=== PATIENT | female | born 2000 | race Caucasian/White ===

== ENCOUNTER 2020-10-13 19:26 | Emergency (ER) | payer OTHER, SELFPAY ==
[2020-10-13 19:27] VITALS: BP 149/90; PULSE 60; RESP 18; TEMP 36.5; O2SAT 99; BMI 26.3
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
[2020-10-13] MEDS: Ondansetron ODT 4 MG Tablet PO (22:07)
[2020-10-13 22:09] VITALS: BP 133/78; RESP 18
== END 2020-10-13 22:15 | disposition home or self-care (01) ==
PROVIDERS: Emergency Provider Student in an Organized Health Care Education/Training Program; PCP Family Medicine
DX: S06.0X0A Concussion without loss of consciousness, initial encounter (principal); V47.5XXA Car driver injured in collision with fixed or stationary object in traffic accident, initial encounter; Y93.I9 Activity, other involving external motion; Y92.410 Unspecified street and highway as the place of occurrence of the external cause; Y99.8 Other external cause status
CPT/HCPCS: 70450; 99283

== ENCOUNTER 2022-05-30 04:10 | Emergency (ER) | payer OTHER, SELFPAY ==
[2022-05-30 04:11] VITALS: BP 126/70; PULSE 94; RESP 16; TEMP 35.9; O2SAT 97; BMI 28.3
--- NOTE | 2022-05-30 04:20 | ED.VIS.LOWEX ---
HPI History of Present Illness Chief Complaint: Lower Extremity Injury Narrative Narrative: 21-year-old female, denies significant past medical history, presents with injury to her right ankle that she sustained last evening. She states she was walking downstairs in high heels, and on the last step, rolled her ankle. She did not fall. She did not strike her head or lose consciousness. She now has pain and swelling mainly about the right lateral ankle. Pain is worse with weightbearing and walking. She took ibuprofen approximately 2 hours prior to arrival. She does have swelling laterally and slight ecchymosis that she noticed. She denies any other injury, states that it is mainly her ankle that is bothering her. PFSH [facility] Home Medications NK 05/30/22 [History Last Taken Unknown] Allergy/AdvReac Type Severity Reaction Status Date / Time No Known Allergies Allergy Verified 10/13/20 19:29 Social History Smoking Status: Never smoker ROS ROS ED ROS Narrative Constitutional: No fever, no chills. HEENT: No sore throat. No neck pain. No loss of vision. No rhinorrhea. Cardiovascular: No chest pain. No palpitations. No pedal edema. Respiratory: No cough, no shortness of breath. Abdominal: No abdominal pain. No nausea. No vomiting. Genitourinary: No dysuria. No hematuria. Musculoskeletal: No myalgias. Right ankle pain and swelling, with mild discoloration. Neurologic: No headaches. No dizziness. No lightheadedness. Skin: No rash. No change in color. Psychiatric: No depression. No anxiety. EXAM Physical Exam Narrative Exam Narrative: Afebrile. Vital signs noted. HEENT: Normocephalic. Atraumatic. PERRL, EOMI. Neck soft and supple. No point tenderness or step off. Cardiovascular: Regular rate and rhythm. No murmurs, rubs, or gallops appreciated. Respiratory: No tachypnea. Lungs clear to auscultation bilaterally. Gastrointestinal: Abdomen soft, nontender, with normoactive bowel sounds. No rebound or guarding. Neurological: Awake. Alert. Nonfocal, nonlateralizing. Skin: No rash. Normal color. No pallor. Musculoskeletal: No pedal edema. Positive swelling and tenderness right lateral malleolus and talofibular ligament area. Palpable dorsalis pedis pulse, right. No palpable Achilles tendon deficit. Flexion and dorsiflexion of right foot intact. No proximal fibular head tenderness. No pain at the base of the fifth metatarsal. Flexion and extension mechanism at knee intact. Const Vital Signs: 05/30/22 04:11 05/30/22 04:11 Temperature 96.6 F L 96.6 F L Temperature Source Temporal Temporal Pulse Rate 94 94 Respiratory Rate 16 16 Blood Pressure 126/70 H 126/70 H Blood Pressure Mean 88 88 Pulse Ox 97 97 Oxygen Delivery Method Room Air Room Air MDM MDM MDM Narrative Medical decision making narrative: Patient came with her own crutches. She has already taken an analgesic prior to arrival. X-rays were obtained of the right ankle and 3 views and interpreted by myself. There is no evidence of acute fracture. I reviewed the radiology report which confirms my individual interpretation. At this point in time, she was put in an Aircast and told to continue ice and elevation at home along with [id number] analgesics. 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 She was given a note to allow crutches for a week or until cleared by her primary care provider. I feel she can be discharged safely home with follow-up. Return instructions to the emergency department were reviewed. Disposition is discharged home in stable condition. Radiography Diagnostic Testing: Clinical Impression(s) from Imaging Studies Ankle X-Ray 05/30/22 04:35 IMPRESSION: Negative. Electronically Signed: Aminah Paul MD at 5:43 EST , Discharge Plan Triage Chief Complaint: Lower Extremity Injury ED Provider: Yvan Weber Dx/Rx/DC Orders Clinical Impression: Right ankle sprain Instructions: ED Ankle Sprain (Adult) Prescriptions: No Action NK Stand Alone Forms: ED Work / School Excuse Primary Care Provider: Asael Chavez Referrals: Asael Chavez MD [Primary Care Provider] - 1-2 Weeks Disposition Disposition: Home, Self Care Discharge Date/Time: 05/30/22 05:03
--- NOTE | 2022-05-30 04:35 | RAD_ITS ---
INDICATION: trauma EXAMINATION/TECHNIQUE: X-RAY - RIGHT XR Ankle Min 3 Views 3 VIEWS COMPARISON: None. FINDINGS: SOFT TISSUES: There is soft tissue swelling suggesting edema in the lateral aspect of the right ankle. No radiopaque foreign body. BONES/JOINTS: No acute fracture or subluxation.. Normal alignment. Preservation of the joint space.. No sclerotic or destructive changes observed. RAD/Ankle min 3 Views IMPRESSION: Negative. Electronically Signed: Aminah Paul MD at 5:43 EST ,
== END 2022-05-30 05:03 | disposition home or self-care (01) ==
PROVIDERS: Emergency Provider Emergency Medicine; PCP Family Medicine; Visit Provider Emergency Medicine
DX: S93.401A Sprain of unspecified ligament of right ankle, initial encounter (principal); X58.XXXA Exposure to other specified factors, initial encounter
CPT/HCPCS: 73610; 99283